=== PATIENT | female | born 1985 | race Hispanic/Latino ===

== ENCOUNTER 2018-05-26 11:49 | Emergency (ER) | payer MEDICAID | END 2018-05-26 14:20 | disposition home or self-care (01) | LOC: EDH 11:49 | DX: O99.342 Other mental disorders complicating pregnancy, second trimester (principal); F41.1 Generalized anxiety disorder; Z3A.21 21 weeks gestation of pregnancy; F32.9 Major depressive disorder, single episode, unspecified ==